=== PATIENT | female | born 1985 | race American Indian/Alaskan Native ===

== ENCOUNTER 2020-07-05 15:11 | Outpatient (CLI) | payer BC, MEDICAID ==
[2020-07-05 15:36] VITALS: BP 136/71
--- NOTE | 2020-07-05 19:28 | Ultrasound Report ---
CLINICAL DATA: FWB TECHNICAL DATA: Document breath, motion, gestational age, tone, and fluid. FINDINGS: respiration, tone, and motion are well visualized and normal. Amniotic fluid volume is normal. Biophysical profile score is 8/8. The lower uterine segment is evaluated and there is no evidence of placenta previa. heart rate is Heart Rate. 144 IMPRESSION: The biophysical profile score is 8/8. Signer Name: Piotr Yi MD Signed: 07/05/2020 7:23 PM Workstation Name: [id number]
== END 2020-07-05 18:43 | disposition home or self-care (01) ==
LOC: TRG 15:11 → APU 15:13 → TRG 18:43
PROVIDERS: ATTEND Obstetrics & Gynecology
DX: O36.8130 Decreased fetal movements, third trimester, not applicable or unspecified (principal); Z3A.34 34 weeks gestation of pregnancy
CPT/HCPCS: 59025; 76819

== ENCOUNTER 2020-07-31 05:26 | Inpatient (IN) | payer BC, MEDICAID ==
--- NOTE | 2020-07-31 05:05 | History and Physical Report ---
History of Present Illness Date of examination: 07/31/20 Chief complaint: scheduled section History of present illness: Pt is a 35 year old -[place] female [id number] DARREL 08/14/20 at 38w0d presents for scheduled section secondary to previous x 2, chronic hypertension on Procardia XL 30 mg daily, late diagnosis of gestational diabetes and morbid obesity. She reports rare contractions and denies leakage of fluid or vaginal bleeding. She has had care at [facility] since 9 wks complicated by chronic hypertension, morbid obesity, gestational diabetes, two prior sections, GERD, h/o 24 wk IUFD, h/o IUGR in prior , migraines, and thrombocytosis s/p hematology referral. She is GBS Negative. Past History Past Medical History: hypertension, diabetes (gestational ), migraines, other (morbid obesity ) Past Surgical History: cholecystectomy, section Family/Genetic History: heart disease, hypertension, cancer Social history: no significant social history - Obstetrical History Expected Date of Delivery: 08/14/20 Actual Gestation: 38 Week(s) 0 Day(s) : 7 Para: 3 Hx # Term Pregnancies: 1 Number of Pregnancies: 2 Spontaneous Abortions: 2 Induced : 1 Number of Living Children: 2 Medications and Allergies Allergies Allergy/AdvReac Type Severity Reaction Status Date / Time lisinopril AdvReac Unknown Verified 07/05/20 17:59 Home Medications Medication Instructions Recorded Confirmed Last Taken Type Metoclopramide [Reglan] 10 12/10/13 12/10/13 Unknown History Omeprazole [Prilosec] 20 mg PO QDAY 12/10/13 12/10/13 Unknown History Ondansetron [Zofran] 4 mg PO Q8HR PRN 12/10/13 12/10/13 Unknown History Pnv95/Ferrous Fumarate/FA 12/10/13 12/10/13 12/08/13 History [ Multivitamins Tablet] Promethazine [Phenergan] 12/10/13 12/10/13 Unknown History raNITIdine HCL [Ranitidine] 300 mg PO QPM 12/10/13 12/10/13 Unknown History Active Meds: Active Medications Citric Acid/Sodium Citrate (Bicitra Oral Liqd 30ml) 30 ml PO ONCE ONE Stop: 07/31/20 05:01 Famotidine (Famotidine 20 Mg/2 Ml Inj) 20 mg IV ONCE ONE Stop: 07/31/20 05:01 Lactated Ringer's (Lactated Ringers) 1,000 mls @ 2,250 mls/hr IV PREOP TEA Stop: 08/01/20 05:27 Oxytocin/Sodium Chloride (Pitocin/Ns 30 Unit/500ml) 30 units in 500 mls @ 0 mls/hr IV TITR TEA; Protocol Cefazolin Sodium 3 gm/ Sodium (Chloride) 100 mls @ 100 mls/30 min IV PREOP NR; Protocol Metoclopramide HCl (Metoclopramide 10 Mg/2 Ml Inj) 10 mg IV ONCE ONE Stop: 07/31/20 05:01 Review of Systems All systems: negative - Physical Exam Abdomen: Positive: soft (obese, gravid ) Uterus: Positive: enlarged (gravid ) Extremities: Positive: edema (trace) - Obstetrical FHR: auscultation normal Uterine Contraction Monitor Mode: External Uterine Contraction Pattern: Absent Uterine Tone Measurement Phase: Resting Results All other labs normal. Assessment and Plan A: IUP at 38w0d Chronic HTN on Procardia XL 30 mg daily Gestational Diabetes, late diagnosis, pt declines home glucose monitoring Previous x 2 Morbid Obesity GERD H/o 24 wk IUFD H/o delivery at 32 wks Thrombocytosis GBS Negative P: Baseline PIH panel and Accuchek Proceed with repeat section and other indicated procedures
[~2020-07-31 05:26] MED LIST: OXYTOCIN DRIP 30 UNITS/500 ML BAG IV SCH
[2020-07-31] MEDS ORDERED: BICITRA ORAL LIQD 30ML PO ONE (05:45)
[2020-07-31] MEDS ORDERED: METOCLOPRAMIDE 10 MG/2 ML INJ IV ONE (05:45)
[2020-07-31] MEDS ORDERED: FAMOTIDINE 20 MG/2 ML INJ IV ONE (05:45)
--- NOTE | 2020-07-31 06:20 | Anesthesia Day of Surgery ---
Anesthesia Day of Surgery - Day of Surgery Patient Examined: Yes Patient H&P Reviewed: Yes Patient is NPO: Yes Beta Blockers: No Cardiac Clearance: No Pulmonary Clearance: No Rony's Test: N/A
--- NOTE | 2020-07-31 06:27 | Anesthesia Consultation ---
Anesthesia Consult and Med Hx Date of service: 07/31/20 - Airway Anesthetic Teeth Evaluation: Good ROM Head & Neck: Adequate Mental/Hyoid Distance: Adequate Mallampati Class: Class III Intubation Access Assessment: Possibly Difficult - Pulmonary Exam CTA: Yes - Cardiac Exam Cardiac Exam: RRR - Pre-Operative Health Status ASA Pre-Surgery Classification: ASA2 Proposed Anesthetic Plan: Spinal Nerve Block: TAP - Pulmonary Hx Smoking: No Hx Asthma: No Hx Sleep Apnea: No - Cardiovascular System Hx Hypertension: Yes (chtn) Hx Heart Attack/AMI: No Hx Angina: No - Central Nervous System Hx Seizures: No Hx Psychiatric Problems: No - Gastrointestinal Hx Gastroesophageal Reflux Disease: Yes - Endocrine Hx Renal Disease: No Hx Insulin Dependent Diabetes: Yes (gest dm) Hx Non-Insulin Dependent Diabetes: No Hx Hypothyroidism: No Hx Hyperthyroidism: No - Hematic Hx Anemia: Yes Hx Sickle Cell Disease: No - Other Systems Hx Alcohol Use: Yes (not during ) Hx Obesity: Yes
[2020-07-31] MEDS: LACTATED RINGERS 1,000 ML IV SCH ×2 (06:30→07:23)
[2020-07-31] MEDS ORDERED: ONDANSETRON 4 MG/2 ML INJ ONE (06:34)
[2020-07-31] MEDS ORDERED: KETOROLAC 30 MG/1 ML INJ ONE (06:34)
[2020-07-31 06:44] LABS: Basophils # (Auto) 0.1 K/mm3 (0.0-0.1); Basophils % (Auto) 0.8 % (0.0-1.8); Eosinophils # (Auto) 0.2 K/mm3 (0.0-0.4); Eosinophils % (Auto) 2.2 % (0.0-4.3); Hematocrit 31.9 % (30.3-42.9); Hemoglobin 10.8 gm/dl (10.1-14.3); Lymphocytes # (Auto) 2.1 K/mm3 (1.2-5.4); Lymphocytes % (Auto) 25.3 % (13.4-35.0); Mean Corpuscular HGB Conc 34 % (30-34); Mean Corpuscular Volume 91 fl (79-97); Monocytes # (Auto) 0.4 K/mm3 (0.0-0.8); Monocytes % (Auto) 5.3 % (0.0-7.3); Platelet Count 482 K/mm3 (140-440); Red Blood Count 3.52 M/mm3 (3.65-5.03); Red Cell Distribution Width 14.7 % (13.2-15.2)
[2020-07-31 07:05] LABS: Alanine Aminotransferase 7 units/L (7-56); Uric Acid 3.5 mg/dL (3.5-7.6)
[2020-07-31] MEDS ORDERED: ceFAZolin/STERILE WATER 2 GM/20 ML SYRINGE IV ONE (07:20)
[2020-07-31] MEDS ORDERED: WATER FOR IRRIG STERILE 1,500 ML BOTTLE IR ONE (08:00)
[2020-07-31] MEDS ORDERED: SODIUM CHLORIDE 0.9% IRR 1,500 ML BOTTLE IR ONE (08:00)
[2020-07-31] MEDS ORDERED: BUPIVACAINE/PF (0.5%) 5 MG/1 ML 30 ML VIAL INFILTRATI ONE (08:06)
[2020-07-31] MEDS ORDERED: LIDOCAINE 2%/EPINEPHRINE 1:200,000 VIAL (20 ML) INFILTRATI ONE (08:06)
[2020-07-31] MEDS ORDERED: dexAMETHasone 20 MG/5 ML VIAL ONE (08:06)
[2020-07-31] MEDS ORDERED: PHENYLEPHRINE/NS 1,000 MCG/10 ML SYRINGE (OR USE) IV ONE ×2 (08:11→08:49)
--- NOTE | 2020-07-31 08:14 | Progress Note ---
Spinal Anesthesia Block - Spinal Anesthesia Block Start Time: 07:37 Stop Time: 07:57 Performed by:: ISIDRO BYRNES (Alesha GARY) Procedure: Combined spinal epidural is being performed for C/S. H&P, labs were reviewed. All questions and concerns were answered. Informed consent was obtained. Timeout performed. Patient in sitting position on side of bed. Sterile prep and drape was performed. 3 mL 1% lidocaine skin wheal at L [3]-L[4]. 18-gauge Tuohy epidural needle advanced to [id number] using air technique, [9]. 27-gauge spinal needle advanced, positive free-flowing CSF. Upon admin of spinal dose of [Marcaine 11.25mg and Precedex 5mcg], pt complained of pain. Injection stopped, less than 0.2mls given. Epidural catheter advanced to [14] cm. [negative] Aspiration, [negative] test dose. Sterile dressing applied. Patient tolerated procedure well.
[2020-07-31] MEDS ORDERED: miSOPROStol 200 MCG TAB ONE (08:55)
[2020-07-31] MEDS ORDERED: miSOPROStol 200 MCG TAB VG SCH (09:00)
[2020-07-31] MEDS ORDERED: OXYTOCIN 10 UNIT/1 ML INJ ONE (09:11)
[2020-07-31] MEDS ORDERED: SODIUM CHLORIDE 0.9% 500 ML 500 ML ONE (09:31)
--- NOTE | 2020-07-31 09:44 | Procedure Note ---
OB Delivery Note - Delivery Date of Delivery: 07/31/20 Surgeon: DENIZ LOCKETT Estimated blood loss: 1000cc - Section Preop diagnosis: repeat , other (Chronic HTN, GDM ) Postop diagnosis: same section procedure: section, repeat low transverse Disposition: PACU Complications: uterine atony Narrative: Please see operative report - A at 1 minute: 9 at 5 minutes: 9 Infant Gender: Male (3128g (6lb 14 oz) @ 0843 am)
--- NOTE | 2020-07-31 09:50 | Operative Report ---
Operative Report Operative Report: Date of procedure: July 31, 2020 Preoperative diagnosis: 1) IUP at 38w0d 2) Chronic HTN 3) Previous x 2 4) Morbid Obesity 5) Gestational Diabetes Postoperative diagnosis: Same 6) Uterine Atony Procedure: Repeat low transverse section Surgeon: Ciera March M.D. Anesthesia: Regional Findings: 1) Viable male , Apgars 9 and 9, weight 3128 g, (6 lb 14 oz) in cephalic presentation. Nuchal cord x 3 2) Normal-appearing uterus ovaries and tubes Estimated blood loss: 1000 mL IV fluids:1400 mL Urine output: 100 mL, clear at the end of the procedure Drains: Dooley to gravity Specimens: Placenta to pathology Medication: Misoprostol 800 mcg per rectum Complications:None. Counts correct x 3 Disposition: Stable to PACU Indication for procedure: Pt is a 35 year old -[place] female at 38w0d with a h/o chronic hypertension, gestational diabetes, morbid obesity and two prior sections who presents for scheduled repeat section. Operation in detail: After the risks, benefits, alternatives and complications were explained to the patient she gave informed consent for the procedure. She was subsequently taken to the operating room where regional anesthesia was noted to be adequate. She was placed in the dorsal supine position with leftward tilt and prepped and draped in a normal sterile fashion. heart tones were noted prior to incision. A timeout was performed. A Pfannenstiel skin incision was made with the knife and carried down to the layer of the fascia with the Bovie. The fascia was incised in the midline and the fascial incision was extended bilaterally with the Bovie. The fascial incision was then stretched. The rectus muscles were then in the midline and partially transected for adequate visualization. The peritoneum was then entered bluntly. The peritoneal incision was extended with good visualization of the bladder. The peritoneal incision was then stretched. An Sree retractor was placed. The bladder blade was then placed. A transverse incision was made in the lower uterine segment with a knife and extended bilaterally with the bandage scissors. Amniotomy was performed with egress of clear fluid. head nwas noted to be floating and was delivered with one pull and no pop offs of a Kiwi vacuum, nuchal cord x 3 was reduced, followed by delivery of the shoulders and body. bulb suctioned at delivery. Cord clamped and cut. handed to NICU staff in attendance. Cord blood was collected. The placenta was then delivered manually. The uterus was then exteriorized and cleared of all clots and debris. Additional pitocin was given in response to uterine atony. Uterine tone improved. The hysterotomy was then reapproximated with 0 Vicryl in a running locked fashion. A second layer of the same suture was used in imbricating fashion. The hysterotomy was inspected and hemostasis was noted. The gutters were irrigated and cleared of all clots and debris. The hysterotomy was again inspected and noted to be hemostatic. Surgicel was placed over the hysterotomy. The uterus was placed back into the peritoneal cavity. The Sree retractor was removed. The peritoneum was reapproximated with 2-0 Vicryl in a running fashion incorporating the rectus muscles. Surgicel was placed over the rectus muscles. The fascia was reapproximated with 0 Vicryl in a running fashion. The subcutaneous tissue was reapproximated with 3-0 Vicryl in a running fashion. The skin was reapproximated with 4-0 Vicryl in a subcuticular fashion. The incision was then covered with steri strips and a pressure dressing. The procedure was then ended. The patient tolerated the procedure well and was taken to the PACU in stable condition. All instrument, lap, and needle counts were correct 3.
--- NOTE | 2020-07-31 10:38 | Progress Note ---
Regional Anesthesia Block - Regional Anesthesia Block Start Time: 09:51 Stop Time: 10:00 Performed By:: ISIDRO BYRNES (Alesha GARY) Procedure: Patient consented for TAP block for post surgical pain management. Patient identified, monitors placed, and time out performed. Mid axillary TAP identified bilaterally via ultrasound. Skin prepped bilaterally with [chlorhexidine] and [20g stimuplex] needle advanced to the TAP. 35ml [Marcaine 0.25% with 25mcg Precedex and Decadron 5mg] injected under ultrasound guidance on the [left] side. 35ml [Marcaine 0.25% with 25mcg Precedex and Decadron 5mg] injected under ultrasound guidance on the [right] side.
[2020-07-31] MEDS ORDERED: PROMETHAZINE 25 MG TAB PO PRN (11:00)
[2020-07-31] MEDS ORDERED: diphenhydrAMINE 50 MG/ML VIAL IV PRN (11:00)
[2020-07-31] MEDS ORDERED: NalbUPHINE 10 MG/1 ML INJ IV PRN (11:00)
[2020-07-31] MEDS ORDERED: NALOXONE 0.4 MG/1 ML INJ IV PRN ×2 (11:00→12:08)
[2020-07-31] MEDS ORDERED: ONDANSETRON 4 MG/2 ML INJ IV PRN ×2 (11:00→12:08)
[2020-07-31] MEDS ORDERED: HYDROmorphone 1 MG/1 ML INJ IV PRN (11:00)
[2020-07-31] MEDS ORDERED: PROMETHAZINE 25 MG RECT SUPP PR PRN (11:00)
[2020-07-31] MEDS ORDERED: LANOLIN/ZINC/DIMETHICONE (LANSINOH) 7 GM TP PRN (12:08)
[2020-07-31] MEDS ORDERED: MORPHINE 4 MG/1 ML INJ IV PRN (12:08)
[2020-07-31] MEDS ORDERED: OXYTOCIN DRIP 30 UNITS/500 ML BAG IV SCH (12:08)
[2020-07-31] MEDS ORDERED: WITCH HAZEL/ GLYCERIN PAD TP PRN (12:08)
[2020-07-31] MEDS ORDERED: MORPHINE 2 MG/1 ML INJ IV PRN (12:08)
[2020-07-31] MEDS ORDERED: SIMETHICONE 80 MG CHEW TAB PO PRN (12:08)
--- NOTE | 2020-07-31 13:57 | Post Anesthesia Evaluation ---
- Post Anesthesia Evaluation Patient Participated: Yes Airway Patent: Yes Stable Respiratory Function: Yes Nausea/Vomiting: No Temp > 96.8F: Yes Pain Manageable: Yes Adequeate Hydration: Yes Anesthesia Complications: Yes (Pt complains of L foot pain, will follow up again tomorrow) Block Receding Appropriately: Yes Patient on Ventilator: No
[2020-07-31] MEDS: KETOROLAC 30 MG/1 ML INJ IV SCH ×2 (14:00→19:58)
[2020-07-31] MEDS: ceFAZolin/NS 1 GM/50 ML 1 GM/50 ML BAG IV SCH ×2 (16:54→23:51)
[2020-07-31] MEDS: NIFEdipine XL 30 MG TAB PO SCH (16:54)
[2020-07-31] MEDS ORDERED: D5W/LACTATED RINGERS 1,000 ML IV SCH (17:00)
[2020-07-31] MEDS: FERROUS SULFATE 325 MG TAB PO SCH (18:13)
[2020-07-31 22:00] LABS: Hematocrit 30.5 % (30.3-42.9); Hemoglobin 10.2 gm/dl (10.1-14.3)
[2020-07-31] MEDS: oxyCODONE /ACETAMINOPHEN 5-325MG TAB PO PRN (23:47)
[2020-08-01] MEDS: KETOROLAC 30 MG/1 ML INJ IV SCH (00:32)
[2020-08-01] MEDS: IBUPROFEN 800 MG TAB PO PRN ×3 (04:00→16:04)
[2020-08-01] MEDS ORDERED: DIPHtheria,PERTUSSIS(ACELL),TETANUS VACCINE/PF 0.5 ML VIAL IM ONE (06:52)
[2020-08-01] MEDS: oxyCODONE /ACETAMINOPHEN 5-325MG TAB PO PRN ×3 (07:24→18:54)
--- NOTE | 2020-08-01 08:45 | Progress Note ---
Assessment and Plan A: POD#1 s/p repeat at term Chronic HTN on Nifedipine XL 30 mg daily Morbid Obesity Chronic HTN GDM P: Continue routine postop care Subjective - Subjective Date of service: 08/01/20 Principal diagnosis: POD#1 s/p repeat at term, chTN, GDM, Morbid Obesity Interval history: Subioptimal pain control overnight. Otherwise doing well. Patient reports: appetite normal, voiding normally, flatus, bowel movement, pain poorly controlled, ambulating normally [place]: doing well Objective - Vital Signs Latest vital signs: Vital Signs Temp Pulse Resp BP BP Pulse Ox 08/01/20 08:08 98.4 F 99 H 20 124/74 95 08/01/20 04:20 98.2 F 88 18 110/60 96 08/01/20 04:00 20 08/01/20 00:00 98.6 F 77 16 136/78 07/31/20 23:47 20 07/31/20 20:16 98.0 F 87 18 147/77 97 07/31/20 19:58 20 07/31/20 15:05 98.5 F 83 18 157/86 96 07/31/20 11:53 97.7 F 80 18 145/88 100 07/31/20 11:00 75 16 108/52 98 07/31/20 10:45 96.0 F L 73 16 104/50 98 07/31/20 10:30 76 17 112/52 97 07/31/20 10:15 74 16 110/45 97 07/31/20 10:00 75 15 93/38 97 07/31/20 09:55 77 16 86/42 97 07/31/20 09:50 72 18 95/55 97 07/31/20 09:45 97.6 F 75 15 86/39 97 Intake and Output 07/31/20 08/01/20 08/01/20 22:59 06:59 14:59 Intake Total 350 240 360 Output Total 2150 Balance -1800 240 360 Intake: IV 50 ANCEF/NS 1 GM/50 ML 1 gm 50 In 50 ml @ 100 mls/hr IV Q8H [facility] Rx#:[id number] Oral 120 Intake, Free Water 300 240 240 Output: Urine 2150 Indwelling Catheter 800 Void 1350 Other: Total, Intake Amount 120 Total, Output Amount 400 # Voids Void 1 # Bowel Movements 2 - Exam Breasts: Present: deferred Abdomen: Present: soft (obese ) Uterus: Present: fundal height at umbilicus Extremities: Present: normal Incision: Present: dressed
[2020-08-01] MEDS: FERROUS SULFATE 325 MG TAB PO SCH (09:35)
[2020-08-01] MEDS: NIFEdipine XL 30 MG TAB PO SCH (09:35)
[2020-08-01] MEDS ORDERED: MEASLES, MUMPS & RUBELLA 12,500 UNIT/0.5 ML VACCINE SUB-Q ONE (09:52)
--- NOTE | 2020-08-01 18:17 | Post Anesthesia Evaluation ---
- Post Anesthesia Evaluation Patient Participated: Yes Airway Patent: Yes Stable Respiratory Function: Yes Nausea/Vomiting: No Temp > 96.8F: Yes Pain Manageable: Yes Adequeate Hydration: Yes Anesthesia Complications: No Block Receding Appropriately: Yes (Patient states pain is resolving and significantly improved.)
[2020-08-02] MEDS: IBUPROFEN 800 MG TAB PO PRN (00:25)
[2020-08-02] MEDS: oxyCODONE /ACETAMINOPHEN 5-325MG TAB PO PRN ×3 (02:00→15:46)
[2020-08-02] MEDS: FERROUS SULFATE 325 MG TAB PO SCH (09:36)
[2020-08-02] MEDS: NIFEdipine XL 30 MG TAB PO SCH (09:36)
--- NOTE | 2020-08-02 12:44 | Progress Note ---
Assessment and Plan - Patient Problems (1) Chronic hypertension Current Visit: Yes Status: Acute Plan to address problem: will add amlodopine today if blood pressures improve, will send home Subjective - Subjective Date of service: 08/02/20 Interval history: Patient doing well. Having labile blood pressures. She is currently without complaints. Patient normally takes amlodopine for her chronic hypertension. Patient reports: appetite normal, voiding normally, pain well controlled : doing well Objective - Vital Signs Latest vital signs: Vital Signs Temp Pulse Resp BP BP Pulse Ox 08/02/20 11:48 98 H 18 151/87 97 08/02/20 08:27 98.6 F 115 H 18 162/91 98 08/02/20 04:20 97.6 F 91 H 20 150/87 95 08/02/20 03:00 18 08/02/20 02:00 20 08/02/20 01:25 18 08/02/20 00:25 18 08/02/20 00:04 98.3 F 95 H 20 151/89 96 08/01/20 20:27 98.5 F 102 H 20 122/66 94 08/01/20 19:54 18 08/01/20 16:19 98.4 F 100 H 20 136/85 97 Intake and Output 08/01/20 08/02/20 08/02/20 22:59 06:59 14:59 Intake Total 1200 720 Balance 1200 720 Intake: Oral 480 240 Intake, Free Water 720 480 Other: Total, Intake Amount 480 240 # Voids Void 3 2 - Exam Abdomen: Present: normal appearance, soft
--- NOTE | 2020-08-02 12:47 | Discharge Summary ---
Providers - Providers Date of Admission: 07/31/20 05:26 Date of discharge: 08/02/20 Attending physician: DENIZ LOCKETT 07/31/20 12:08 Consult to Ldr Rn [CONS] Routine Reason For Exam: Primary care physician: DENIZ LOCKETT Hospitalization Reason for admission: section Delivery: Procedure: section, repeat low transverse Discharge diagnosis: IUP at term delivered Hospital course: Patient admitted for chronic hypertension and previous . See op note. Postop uneventful Condition at discharge: Good Disposition: DC-01 TO HOME OR SELFCARE - Discharge Diagnoses (1) Chronic hypertension Status: Acute Plan - Discharge Medications Prescriptions: amLODIPine 5 mg PO DAILY #30 tab Ibuprofen [Motrin] 800 mg PO Q8HR PRN #30 tablet PRN Reason: Pain, Moderate (4-6) oxyCODONE /ACETAMINOPHEN [Percocet 5/325] 1 tab PO Q6HR PRN #30 tablet PRN Reason: Pain NIFEdipine XL [Procardia Xl] 30 mg PO QDAY #30 tablet - Provider Discharge Summary Activity: no sex for 6 weeks, no heavy lifting 4 weeks, no strenuous exercise Diet: routine Instructions: routine Additional instructions: [] Smoking cessation referral if applicable(refer to patient education folder for contact #) [] Refer to [facility] Booklet Call your doctor immediately for: * Fever > 100.5 * Heavy vaginal bleeding ( >1 pad per hour) * Severe persistent headache * Shortness of breath * Reddened, hot, painful area to leg or breast * Drainage or odor from incision. * Keep incision clean and dry at all times and follow doctor's instructions regarding bathing/showering schedule followup in 2 weeks - Follow up plan
[2020-08-02] MEDS ORDERED: amLODIPine 5 MG TAB PO SCH (13:00)
[2020-08-02 16:00] VITALS: BP 156/86
== END 2020-08-02 16:19 | disposition home or self-care (01) | DRG 787 ==
LOC: APU 05:26 → OB 11:01
PROVIDERS: ADMIT Obstetrics & Gynecology; ATTEND Obstetrics & Gynecology
PROC: 10D00Z1 Extraction of Products of Conception, Low, Open Approach (ICD-10-PCS; principal; 2020-07-31)
PROC: 3E0T3BZ Introduction of Anesthetic Agent into Peripheral Nerves and Plexi, Percutaneous Approach (ICD-10-PCS; 2020-07-31)
DX: O24.429 Gestational diabetes mellitus in childbirth, unspecified control (principal); O10.92 Unspecified pre-existing hypertension complicating childbirth; O99.12 Other diseases of the blood and blood-forming organs and certain disorders involving the immune mechanism complicating childbirth; O34.211 Maternal care for low transverse scar from previous cesarean delivery; D47.3 Essential (hemorrhagic) thrombocythemia; O99.214 Obesity complicating childbirth; E66.01 Morbid (severe) obesity due to excess calories; Z20.822 Contact with and (suspected) exposure to COVID-19; Z3A.38 38 weeks gestation of pregnancy; Z37.0 Single live birth; Z82.49 Family history of ischemic heart disease and other diseases of the circulatory system; Z80.8 Family history of malignant neoplasm of other organs or systems
CPT/HCPCS: 36415; 82565; 82962; 83615; 84450; 84460; 84550; 85014; 85018; 85025; 86592; 86850; 86870; 86900; 86901; 88307; G0378; J0690; J1100; J1885; J2270; J2370; J2405; J2590; J2765; J3490; J7040; J7120; J7121; Q0169; U0003

== ENCOUNTER → 2021-06-18 | Outpatient (CLI) | payer BC, MEDICAID | END | disposition home or self-care (01) | LOC: SLR 11:00 | PROVIDERS: ATTEND Nurse Practitioner Acute Care | DX: G47.33 Obstructive sleep apnea (adult) (pediatric) (principal) | CPT/HCPCS: G0399 ==